=== PATIENT | female | born 1945 | race Caucasian/White ===

== ENCOUNTER 2022-01-08 02:17 | Emergency (ER) | payer MEDICARE, OTHER ==
[2022-01-08] MEDS ORDERED: PHENYLEPHRINE 0.5% NOSE 15ML NAS ONE (02:37)
[2022-01-08] MEDS ORDERED: TRANEXAMIC ACID 1,000 MG/10 ML VIAL IV ONE (02:43)
--- NOTE | 2022-01-08 03:47 | ER ---
Nurse's Notes [facility] Name: Marielos Soler Age: 76 yrs Sex: Female : 1945 Arrival Date: 01/08/2022 Time: 02:18 Bed 8 Private MD: Diagnosis: Epistaxis Presentation: 01/08 02:27 Chief complaint: Patient's son or daughter states: pt has history of chronic nose bb bleeds had a 3 hour nose bleed yesterday morning then it started again around 2300 last night pt has had recent cautery to nose and has packing in right nares pt had recent surgery and was off of blood thinners but started them back again on Saturday. Coronavirus screen: At this time, the client does not indicate any symptoms associated with coronavirus-19. Ebola Screen: No symptoms or risks identified at this time. Initial Sepsis Screen: Does the patient meet any 2 criteria? No. Patient's initial sepsis screen is negative. Does the patient have a suspected source of infection? No. Patient's initial sepsis screen is negative. Risk Assessment: Do you want to hurt yourself or someone else? Patient reports no desire to harm self or others. Onset of symptoms was January 07, 2022. 02:27 Method Of Arrival: Wheelchair bb 02:27 Acuity: CLARKE 3 bb Historical: - Allergies: 02:30 Benzonatate; bb - Home Meds: 02:30 Dicyclomine Oral [Active]; midodrine oral [Active]; spironolactone Oral [Active]; bb Furosemide Oral [Active]; pantoprazole oral [Active]; levothyroxine oral [Active]; Eliquis oral [Active]; Plavix Oral [Active]; Aspirin Oral [Active]; - PSHx: 02:30 pacemaker; Watchman; bb - Immunization history:: Adult Immunizations up to date. - Social history:: Smoking status: Patient denies any tobacco usage or history of. Screenin:03 Abuse screen: Denies threats or abuse. Denies injuries from another. Nutritional as6 screening: No deficits noted. Tuberculosis screening: No symptoms or risk factors identified. Fall Risk None identified. Assessment: 02:30 General: Appears in no apparent distress. Behavior is cooperative, anxious. Pain: as6 Denies pain. Neuro: Level of Consciousness is awake, alert. Respiratory: Respiratory effort is even, unlabored. EENT: Nares with bleeding noted on right. Vital Signs: 02:27 BP 123 / 48; Pulse 72; Resp 18 S; Pulse Ox 95% on R/A; Weight 50.8 kg (R); Height 5 ft. bb 4 in. (162.56 cm) (R); Pain 0/10; 03:17 BP 121 / 53; Pulse 70; Resp 20 S; Pulse Ox 96% on R/A; as6 02:27 Body Mass Index 19.22 (50.80 kg, 162.56 cm) bb ED Course: 02:18 Patient arrived in ED. bp1 02:20 Carlos Alberto Jon, TASHA is Primary Nurse. as6 02:21 Abhijeet Sanches DO is Attending Physician. ms3 02:30 Triage completed. bb 02:30 Arm band placed on Patient placed in an exam room, on a stretcher, on pulse oximetry. bb Family accompanied patient. 02:42 Assist provider with nosebleed control using Afrin sprays, nasal clamp, Bleeding from aa9 right nares. Set up for procedure. Performed by Abhijeet Sanches DO Bleeding decreased. Patient tolerated well. 03:03 Bed in low position. Call light in reach. Side rails up X 1. Adult w/ patient. as6 03:46 Monica Cervantes MD is Referral Physician. ms3 04:07 Patient did not have IV access during this emergency room visit. as6 Administered Medications: 03:20 Drug: Finn-Synephrine (phenylephrine) [place] 0.5 % 2 sprays {Note: administered by as6 provider .} Route: Intranasal; Site: right nare; 04:08 Follow up: Response: No adverse reaction as6 03:20 Drug: Tranexamic Acid 200 mg {Note: administered by provider .} Route: IV; Rate: as6 calculated rate; Site: Other; 04:08 Follow up: Response: No adverse reaction; IV Status: Completed infusion; IV Intake: [id number] Medication: 04:07 VIS not applicable for this client. as6 Intake: 04:08 IV: 10ml; Total: 10ml. as6 Outcome: 03:47 Discharge ordered by . ms3 04:07 Discharged to home via wheelchair, with family. as6 04:07 Condition: stable 04:07 Discharge instructions given to patient, family, Instructed on discharge instructions, follow up and referral plans. Demonstrated understanding of instructions, follow-up care. 04:08 Patient left the ED. as6 Signatures: Tori Jenkins, RN Abhijeet Ross DO DO ms3 WilfridobillyJovanna Ashby, RN RN as6 Candice Bee RN RN aa9 Corrections: (The following items were deleted from the chart) 02:43 02:42 Assist provider with nosebleed control using Afrin sprays, nasal clamp, Bleeding aa9 from right nares. Set up for procedure. Performed by Abhijeet Sanches DO Bleeding decreased. Patient tolerated well. aa9
--- NOTE | 2022-01-08 03:47 | EDPHYS ---
Physician Documentation [facility] Name: Marielos Soler Age: 76 yrs Sex: Female : 1945 Arrival Date: 01/08/2022 Time: 02:18 Bed 8 Private MD: ED Physician Abhijeet Sanches HPI: 01/08 02:43 This 76 yrs old Female presents to ER via Wheelchair with complaints of Nose Bleed. ms3 02:43 76-year-old female with past medical history of atrial fibrillation status post ms3 watchman procedure presents for right-sided nosebleed that began at 11:30 PM. Patient's granddaughter states patient had a nosebleed this morning and they applied Afrin and nosebleed stopped and the bleeding was controlled. Patient denies pain at this time. Patient denies fevers chills nausea vomiting or lightheadedness. Alleviating or inciting factors. Historical: - Allergies: 02:30 Benzonatate; bb - Home Meds: 02:30 Dicyclomine Oral [Active]; midodrine oral [Active]; spironolactone Oral [Active]; bb Furosemide Oral [Active]; pantoprazole oral [Active]; levothyroxine oral [Active]; Eliquis oral [Active]; Plavix Oral [Active]; Aspirin Oral [Active]; - PSHx: 02:30 pacemaker; Watchman; bb - Immunization history:: Adult Immunizations up to date. - Social history:: Smoking status: Patient denies any tobacco usage or history of. ROS: 02:43 Constitutional: Negative for fever, and chills. Eyes: Negative for injury, pain, ms3 redness, and discharge. 02:43 Cardiovascular: Negative for chest pain, and palpitations. Respiratory: Negative for shortness of breath, cough, wheezing, and pleuritic chest pain, Abdomen/GI: Negative for abdominal pain, nausea, vomiting, diarrhea, and constipation, MS/Extremity: Negative for injury and deformity, Neuro: Negative for headache, weakness, numbness, tingling. 02:43 ENT: Positive for nose bleed. Exam: 02:54 Constitutional: This is a well developed, well nourished patient who is awake, alert, ms3 and in no acute distress. Head/Face: Normocephalic, atraumatic. 02:54 Cardiovascular: Regular rate and rhythm with a normal S1 and S2. No gallops, murmurs, or rubs. Normal PMI, no JVD. No pulse deficits. Respiratory: Lungs have equal breath sounds bilaterally, clear to auscultation and percussion. No rales, rhonchi or wheezes noted. No increased work of breathing, no retractions or nasal flaring. Abdomen/GI: Soft, non-tender, with normal bowel sounds. No distension or tympany. No guarding or rebound. No evidence of tenderness throughout. Skin: Warm, dry with normal turgor. Normal color with no rashes, no lesions, and no evidence of cellulitis. Psych: Awake, alert, with orientation to person, place and time. Behavior, mood, and affect are within normal limits. 02:54 ENT: Nose: bleeding, is seen from the right nare, and is moderate. Vital Signs: 02:27 BP 123 / 48; Pulse 72; Resp 18 S; Pulse Ox 95% on R/A; Weight 50.8 kg (R); Height 5 ft. bb 4 in. (162.56 cm) (R); Pain 0/10; 03:17 BP 121 / 53; Pulse 70; Resp 20 S; Pulse Ox 96% on R/A; as6 02:27 Body Mass Index 19.22 (50.80 kg, 162.56 cm) bb Procedures: 03:15 Epistaxis treatment: A moderate amount of bleeding noted from right nare. Treated using ms3 anterior packing, rhino rocket, TXA, Finn-Synephrine . MDM: 02:43 Patient medically screened. ms3 02:54 Differential diagnosis: spontaneous epistaxis. ms3 03:49 Data reviewed: vital signs, nurses notes, and as a result, I will discharge patient. ms3 Data interpreted: Pulse oximetry: on room air is 96 %. Interpretation: normal. Counseling: I had a detailed discussion with the patient and/or guardian regarding: the historical points, exam findings, and any diagnostic results supporting the discharge/admit diagnosis, the need for outpatient follow up, to return to the emergency department if symptoms worsen or persist or if there are any questions or concerns that arise at home. Administered Medications: 03:20 Drug: Finn-Synephrine (phenylephrine) [place] 0.5 % 2 sprays {Note: administered by as6 provider .} Route: Intranasal; Site: right nare; 04:08 Follow up: Response: No adverse reaction as6 03:20 Drug: Tranexamic Acid 200 mg {Note: administered by provider .} Route: IV; Rate: as6 calculated rate; Site: Other; 04:08 Follow up: Response: No adverse reaction; IV Status: Completed infusion; IV Intake: [id number] Disposition Summary: 01/08/22 03:47 Discharge Ordered Location: Home ms3 Condition: Stable ms3 Diagnosis - Epistaxis ms3 Followup: ms3 - With: Monica Cervantes MD - When: 1 - 2 days - Reason: Recheck today's complaints Discharge Instructions: - Discharge Summary Sheet ms3 - Nosebleed, Adult ms3 Forms: - Medication Reconciliation Form ms3 - Thank You Letter ms3 - Antibiotic Education ms3 - Prescription Opioid Use ms3 Signatures: Tori Jenkins RN RN bb Sims, Marcus, DO DO ms3 Carlos Alberto Jon RN RN as6
[2022-01-08 04:29] VITALS: BP 121/53; O2SAT 96
== END 2022-01-08 04:08 | disposition home or self-care (01) ==
LOC: ER 02:17
DX: R04.0 Epistaxis (principal); I48.91 Unspecified atrial fibrillation; Z88.8 Allergy status to other drugs, medicaments and biological substances
CPT/HCPCS: 30901; 96365; 99283

== ENCOUNTER 2022-01-11 16:51 | Inpatient (IN) | payer MEDICARE ==
[2022-01-11 17:58] LABS: Absolute Lymphocytes (CBC) 1.2 K/uL (0.7-4.9); Lymphocytes % 21.4 % (15.3-44.8); MCV 77.8 fL (80-100); MPV 8.1 fL (7.6-11.3); RBC Red Blood Cell Count 2.68 M/uL (3.86-4.86)
[2022-01-11 18:00] LABS: Hematocrit 20.9 % (36.0-45.0)
[2022-01-11 18:04] LABS: Protime INR 3.71
[2022-01-11 18:18] LABS: Troponin High Sensitivity 36.4 pg/mL (<58.9)
--- NOTE | 2022-01-11 19:58 | EDPHYS ---
Physician Documentation [facility] Name: Marielos Soler Age: 76 yrs Sex: Female : 1945 Arrival Date: 01/11/2022 Time: 16:58 Bed 8 Private MD: ED Physician José Antonio Koo HPI: 01/11 19:00 This 76 yrs old Female presents to ER via Wheelchair with complaints of blood cp transfusion. 19:00 The patient presents with a nose bleed, causative factors include: current treatment cp with blood thinners. 19:00 Onset: The symptoms/episode began/occurred 01/07/2022. Associated signs and symptoms: cp Pertinent positives: general weakness, Pertinent negatives: chest pain, cough, fever, shortness of breath, syncope. 19:00 Severity of symptoms: in the emergency department the symptoms continued nose bleed. cp Patient seen by JOSLYN Paz at office of DR Dodd today for f/u for nose bleed. Had rhino rocket removed and packing placed. Patient reports blood work drawn today showed anemia. Referred to ED for blood transfusion. Historical: - Allergies: 17:14 Benzonatate; iw - Home Meds: 17:15 Eliquis 5 mg oral tab [Active]; furosemide 20 mg oral tab [Active]; Aspirin Oral iw [Active]; Dicyclomine Oral [Active]; Plavix Oral [Active]; pantoprazole Oral [Active]; Spironolactone Oral [Active]; midodrine Oral [Active]; levothyroxine oral [Active]; - PMHx: 17:15 Anemia; Atrial fibrillation; iw - PSHx: 17:14 pacemaker; watchman; iw - Immunization history:: Adult Immunizations. - Social history:: Smoking status: . ROS: 19:05 Constitutional: Negative for body aches, chills, fever, poor PO intake. cp 19:05 Eyes: Negative for injury, pain, redness, and discharge. cp 19:05 ENT: Positive for nose bleed, Negative for drainage from ear(s), ear pain, difficulty swallowing, difficulty handling secretions. 19:05 Cardiovascular: Positive for edema, Negative for chest pain, palpitations. 19:05 Respiratory: Negative for cough, shortness of breath, wheezing. 19:05 Abdomen/GI: Negative for abdominal pain, vomiting, diarrhea, constipation. 19:05 Back: Negative for pain at rest, pain with movement. 19:05 : Negative for urinary symptoms. 19:05 Neuro: Positive for weakness, Negative for altered mental status, headache, loss of consciousness, numbness, syncope. 19:05 All other systems are negative. Exam: 19:00 ECG was reviewed by the Attending Physician. cp 19:08 Constitutional: The patient appears in no acute distress, alert, awake, cp non-diaphoretic, non-toxic, well developed, well nourished, pale. 19:08 Head/Face: Normocephalic, atraumatic. cp 19:08 Eyes: Periorbital structures: appear normal, Pupils: equal, round, and reactive to light and accomodation, Extraocular movements: intact throughout, Conjunctiva: normal, no exudate, no injection, Sclera: no appreciated abnormality, Lids and lashes: appear normal, bilaterally. 19:08 ENT: External ear(s): are unremarkable, Nose: bleeding, is seen from the left nare, and is minimal, no septal hematoma is appreciated, clotted blood, in left nare, Mouth: Lips: moist, Oral mucosa: pink and intact, moist, Posterior pharynx: Airway: no evidence of obstruction, patent. 19:08 Neck: ROM/movement: is normal, is supple, without pain, no range of motions limitations, no nuchal rigidity. 19:08 Chest/axilla: Inspection: normal, Palpation: is normal, no crepitus, no tenderness. 19:08 Cardiovascular: Rate: normal, Rhythm: regular, Edema: ankle edema, that is mild, JVD: is not appreciated. 19:08 Respiratory: the patient does not display signs of respiratory distress, Respirations: normal, no use of accessory muscles, no retractions, labored breathing, is not present, Breath sounds: decreased breath sounds, that are mild, throughout, stridor, is not appreciated, wheezing: is not appreciated. 19:08 Abdomen/GI: Inspection: abdomen appears normal, Palpation: abdomen is soft and non-tender, in all quadrants. 19:08 Back: pain, is absent, ROM is normal, CVA tenderness, is absent. 19:08 Skin: cellulitis, is not appreciated, no rash present. 19:08 Neuro: Orientation: to person, place \T\ time. Mentation: able to follow commands, Motor: moves all fours, general weakness with no focal deficits, Sensation: is normal. Vital Signs: 17:12 BP 110 / 66; Pulse 73; Resp 16; Temp 98.6; Pulse Ox 96% on R/A; Weight 50.8 kg; Height iw 5 ft. 4 in. (162.56 cm); 18:56 BP 109 / 51; Pulse 70; Pulse Ox 100% on R/A; ap3 20:00 BP 104 / 54; Pulse 69; Resp 18; Pulse Ox 98% on R/A; Pain 0/10; kl 22:46 BP 93 / 54; Pulse 70; Resp 18; Temp 97.5(T); Pulse Ox 95% on R/A; Pain 0/10; kl 17:12 Body Mass Index 19.22 (50.80 kg, 162.56 cm) iw MDM: 18:13 Patient medically screened. [facility] 19:05 Data reviewed: vital signs, lab test result(s), EKG, I have discussed the patient's presentation/case with the attending Emergency Department Physician; and as a result, I will admit patient. 19:05 Test interpretation: by ED physician or midlevel provider: ECG. 19:57 Counseling: I had a detailed discussion with the patient and/or guardian regarding: the historical points, exam findings, and any diagnostic results supporting the discharge/admit diagnosis, lab results, the need for further work-up and treatment in the hospital. 19:57 Physician consultation: Sharri ZAMBRANO was contacted at 19:55, regarding admission, to the telemetry unit. patient's condition. ED course: Discussed results of labs and need for blood transfusion. Patient now agrees to be admitted for treatment and ENT consult for epistaxis. 01/11 17:18 Order name: Basic Metabolic Panel; Complete Time: 18:31 bm7 01/11 18:35 Interpretation: Normal except: NA 132; CL 96; GLUC 143; BUN 59; CRE 1.65; GFR 32. cp 01/11 17:18 Order name: CBC with Diff; Complete Time: 18:31 bm7 01/11 18:36 Interpretation: Normal except: WBC 5.5; RBC 2.68; HGB 6.7; HCT 20.9; MCV 77.8; MCH cp 25.0; RDW 21.2; MN% 15.1; BASO% 1.9. 01/11 17:18 Order name: PT-INR; Complete Time: 18:31 [facility] 01/11 17:18 Order name: Troponin HS; Complete Time: 18:31 [facility] 01/11 17:18 Order name: Type And Screen [facility] 01/11 19:49 Order name: Packed RBCs (Additional Unit) [facility] 01/11 17:18 Order name: EKG; Complete Time: 17:35 [facility] 01/11 17:18 Order name: Cardiac monitoring; Complete Time: 18:56 [facility] 01/11 17:18 Order name: EKG - Nurse/Tech; Complete Time: 18:56 [facility] 01/11 17:18 Order name: IV Saline Lock; Complete Time: 18:56 [facility] 01/11 17:18 Order name: Labs collected and sent; Complete Time: 18:56 [facility] 01/11 17:18 Order name: O2 Per Protocol; Complete Time: 18:56 [facility] 01/11 20:15 Order name: SARS RAPID [facility] 01/11 20:28 Order name: ABO/RH no charge [facility] 01/11 17:18 Order name: O2 Sat Monitoring; Complete Time: 18:56 [facility] 01/11 19:13 Order name: Labs - recollect needed: lavender needed [facility] 01/11 19:23 Order name: Transfuse cp EC:00 Rate is 70 beats/min. Rhythm is regular. VA interval is prolonged at 362 msec. QRS cp interval is prolonged at 182 msec. QT interval is normal. T waves are Inverted in leads aVL, aVR. Interpreted by me. Reviewed by me. Administered Medications: No medications were administered Disposition: 01/12 01:04 Co-signature as Attending Physician, José Antonio Koo MD. rn Disposition Summary: 01/11/22 19:57 Hospitalization Ordered Hospitalization Status: Observation cp Provider: Sharri Hawkins cp Location: Telemetry/MedSurg (observation) cp Condition: Stable cp Problem: an ongoing problem cp Symptoms: have improved cp Bed/Room Type: Standard cp Room Assignment: 210(01/11/22 21:59) mw Diagnosis - Epistaxis cp - Anemia, unspecified cp Forms: - Medication Reconciliation Form cp - SBAR form cp Signatures: Dispatcher [employer] Fiordaliza Rock RN Will Varela MD MD cha Williams, Irene, RN RN iw Nieto, Roman, MD MD rn Martinez, Eric em1 Will Mariee PA PA cp Wise, Tara, RN RN tw2 Jovanna Sumner RN RN bm7 Sharri Hawkins PA PA sb3 Corrections: (The following items were deleted from the chart) 01/11 21:59 19:57 brandie taylor
--- NOTE | 2022-01-11 19:58 | ER ---
Nurse's Notes [facility] Name: Marielos Soler Age: 76 yrs Sex: Female : 1945 Arrival Date: 01/11/2022 Time: 16:58 Bed 8 Private MD: Diagnosis: Epistaxis;Anemia, unspecified Presentation: 01/11 17:12 Chief complaint: Patient's son or daughter states: had her nose cauterized and had iw watchman procedure last week, had a rhino rocket placed and removed at ENT office, they did labs today at ENT office and was told her hemoglobin was , was 6;6. Coronavirus screen: At this time, the client does not indicate any symptoms associated with coronavirus-19. Ebola Screen: Patient negative for fever greater than or equal to 101.5 degrees Fahrenheit, and additional compatible Ebola Virus Disease symptoms Patient denies exposure to infectious person. Patient denies travel to an Ebola-affected area in the 21 days before illness onset. No symptoms or risks identified at this time. Initial Sepsis Screen: Does the patient meet any 2 criteria? No. Patient's initial sepsis screen is negative. Does the patient have a suspected source of infection? No. Patient's initial sepsis screen is negative. Risk Assessment: Do you want to hurt yourself or someone else? Patient reports no desire to harm self or others. Onset of symptoms was January 11, 2022. 17:12 Method Of Arrival: Wheelchair iw 17:12 Acuity: CLARKE 2 iw 22:31 Note blood transfusion initiated. kl Triage Assessment: 22:47 General: Appears in no apparent distress. slender, Behavior is calm, flat. Pain: Denies kl pain. Historical: - Allergies: 17:14 Benzonatate; iw - Home Meds: 17:15 Eliquis 5 mg oral tab [Active]; furosemide 20 mg oral tab [Active]; Aspirin Oral iw [Active]; Dicyclomine Oral [Active]; Plavix Oral [Active]; pantoprazole Oral [Active]; Spironolactone Oral [Active]; midodrine Oral [Active]; levothyroxine oral [Active]; - PMHx: 17:15 Anemia; Atrial fibrillation; iw - PSHx: 17:14 pacemaker; watchman; iw - Immunization history:: Adult Immunizations. - Social history:: Smoking status: . Screenin:52 Abuse screen: Denies threats or abuse. Nutritional screening: No deficits noted. tw2 Tuberculosis screening: No symptoms or risk factors identified. Fall Risk Secondary diagnosis (15 points) impaired mobility. Assessment: 18:52 Reassessment: provider at bedside at this time. tw2 Vital Signs: 17:12 BP 110 / 66; Pulse 73; Resp 16; Temp 98.6; Pulse Ox 96% on R/A; Weight 50.8 kg; Height iw 5 ft. 4 in. (162.56 cm); 18:56 BP 109 / 51; Pulse 70; Pulse Ox 100% on R/A; ap3 20:00 BP 104 / 54; Pulse 69; Resp 18; Pulse Ox 98% on R/A; Pain 0/10; kl 22:46 BP 93 / 54; Pulse 70; Resp 18; Temp 97.5(T); Pulse Ox 95% on R/A; Pain 0/10; kl 17:12 Body Mass Index 19.22 (50.80 kg, 162.56 cm) iw ED Course: 16:58 Patient arrived in ED. as 17:14 Triage completed. iw 17:16 Arm band placed on. iw 18:13 Will Mariee PA is PHCP. cp 18:13 Will Early MD is Attending Physician. cp 18:15 Placed in gown. Bed in low position. Adult w/ patient. sheet metal assembler on. Pulse ox on. tw2 NIBP on. Warm blanket given. 19:15 José Antonio Koo MD is Attending Physician. cp 19:57 Sharri Hawkins PA is Hospitalizing Provider. cp 22:47 No provider procedures requiring assistance completed. Patient admitted, IV remains in kl place. Administered Medications: No medications were administered Medication: 18:54 VIS not applicable for this client. tw2 Outcome: 19:57 Decision to Hospitalize by Provider. cp 22:47 Admitted to Med/surg accompanied by nurse, room 210, with chart, Report called to ignacio Callaway RN 22:47 Condition: stable 22:47 Instructed on the need for admit, Demonstrated understanding of instructions. 01/12 00:41 Patient left the ED. Signatures: Genoveva Choudhury RN RN kl Martinez, Amelia as Williams, Irene, RN RN Will Mariee PA PA cp Wise, Tara, RN RN tw2 [place] Valverde, RN RN ap3
--- NOTE | 2022-01-11 20:58 | P.HP ---
Certification for Inpatient Patient admitted to: Observation With expected LOS: <2 Midnights Patient will require the following post-hospital care: None Practitioner: I am a practitioner with admitting privileges, knowledge of patient current condition, hospital course, and medical plan of care. Services: Services provided to patient in accordance with Admission requirements found in Title 42 Section 412.3 of the Code of Federal Regulations Patient History Date of Service: 01/11/22 Reason for admission: Anemia/Epistaxis History of Present Illness: Patient is a 76-year-old female with A. fib on eliquis 1 week s/p watchman who presented to the ED with complaints of anemia. Per patient's family, patient has frequent nosebleeds and went to see ENT about 1 month ago where a vessel in her left nare was cauterized. Since then, she has had many issues with bleeding/pain in her nose. She then had her Walkman procedure 1 week ago and was started on eliquis which has exacerbated her nose bleeds. She went to ENT today where they checked her labs, found a hgb of 6.6, and immediately sent her to ED. Patient is pale and weak on presentation. Blood pressure is soft, but family states she chronically runs low. She has had blood and iron transfusions in the past. Labs today significant for Na 132, Cr 1.65, BUN 56, hgb 6.7, hct 20.9, mcv 77, PT 41, INR 3.71. 2 units PRBC ordered in ED. ENT was contacted and has agreed to see patient in the morning. She is admitted for further evaluation and treatment. Allergies benzonatate Allergy (Verified 01/11/22 21:39) Itching/Hives/Rash Home medications list reviewed: Yes - Past Medical/Surgical History Diabetic: No -: Afib -: Anemia -: CHF -: Watchman -: Pacemaker Psychosocial/ Personal History: Patient is visiting from [place]. - Family History Mother -: Cancer - Social History Smoking Status: Never smoker Alcohol use: No CD- Drugs: No Caffeine use: Yes Place of Residence: Home Review of Systems General: Weakness, As per HPI Physical Examination - Physical Exam General: Alert, In no apparent distress, Other (pale) Neck: Supple, 2+ carotid pulse no bruit, No LAD, Without JVD or thyroid abnormality Respiratory: Clear to auscultation bilaterally, Normal air movement Cardiovascular: No edema, Regular rate/rhythm, Normal S1 S2 Gastrointestinal: Normal bowel sounds, No tenderness Musculoskeletal: No tenderness Integumentary: Other (bruising noted to upper extremities bilaterally) Neurological: Normal speech, Normal strength at 5/5 x4 extr, Normal tone, Normal affect - Studies Laboratory Data (last 24 hrs) 01/11/22 17:40: PT 41.9 H, INR 3.71 01/11/22 17:40: WBC 5.5 D, Hgb 6.7 L*, Hct 20.9 L*, Plt Count 213 01/11/22 17:40: Sodium 132 L, Potassium 4.0, BUN 59 H, Creatinine 1.65 H, Glucose 143 H Assessment and Plan - Problems (Diagnosis) (1) Acute on chronic blood loss anemia Current Visit: Yes Status: Acute (2) Epistaxis, recurrent Current Visit: Yes Status: Acute (3) Afib Current Visit: Yes Status: Chronic Qualifiers: Atrial fibrillation type: unspecified chronic Qualified Code(s): I48.20 - Chronic atrial fibrillation, unspecified; I48.2 - Chronic atrial fibrillation (4) Chronic anticoagulation Current Visit: Yes Status: Chronic (5) CHF (congestive heart failure) Current Visit: Yes Status: Chronic Qualifiers: 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 Qualified Code(s): I50.814 - Right heart failure due to left heart failure (6) Chronic kidney disease Current Visit: Yes Status: Acute Qualifiers: Chronic kidney disease stage: stage 3 (moderate) Chronic kidney disease stage 3 subtype: stage 3a (GFR 45-59) Qualified Code(s): N18.31 - Chronic kidney disease, stage 3a - Plan -Transfuse 2 units PRBC and check post 2 hour CBC -Monitor on telemetry and for signs of fluid overload as patient has history of CHF -Iron studies ordered for the morning -ENT consulted -Physical therapy consult -Reconcile and continue home medications -Monitor and replete electrolytes per protocol -SCDs for VTE ppx -Full code Discharge Plan: Home Plan to discharge in: 24 Hours - Advance Directives Does patient have a Living Will: No Does patient have a Durable POA for Healthcare: No - Code Status/Comfort Care Code Status Assessed: Yes (Full) Critical Care: No Time Spent Managing Pts Care (In Minutes): 50
[2022-01-11 21:27] LABS: SARS-CoV-2 Antigen Rapid Res Negative (Negative)
[2022-01-11] MEDS ORDERED: NA CHLORIDE 0.9% 250 ML ONE (21:58)
[2022-01-11] MEDS ORDERED: DICYCLOMINE HCL 10 MG CAP PO PRN (22:04)
[2022-01-12 00:36] VITALS: BMI 19.2
[2022-01-12] MEDS ORDERED: ACETAMINOPHEN 500 MG TAB PO PRN (00:49)
[2022-01-12] MEDS ORDERED: ONDANSETRON 4 MG/2 ML VIAL IV PRN (00:49)
[2022-01-12] MEDS ORDERED: NA CHLORIDE 0.9% 250 ML ONE (01:57)
[2022-01-12 05:54] LABS: Specific Gravity 1.015 (1.005-1.030); Urine Bilirubin Negative (Negative); Urine Blood 1+ (Negative); Urine Color Yellow (Yellow); Urine Glucose Negative (Negative); Urine Protein Negative (Negative); Urine Urobilinogen 0.2 mg/dL (0.2-1.0); Urine pH 5.5 (5.0-7.0)
[2022-01-12 05:56] LABS: Urine Clarity Slightly Cloudy (Clear)
[2022-01-12 06:07] LABS: Urine Bacteria >50 /HPF (<20)
[2022-01-12 06:08] LABS: Urine WBC Clump Few /HPF (None Seen)
[2022-01-12 06:38] LABS: Absolute Lymphocytes (CBC) 0.7 K/uL (0.7-4.9); Hematocrit 22.6 % (36.0-45.0); Lymphocytes % 17.4 % (15.3-44.8); MCV 77.5 fL (80-100); MPV 8.1 fL (7.6-11.3); RBC Red Blood Cell Count 2.92 M/uL (3.86-4.86)
[2022-01-12 06:49] LABS: Albumin 2.6 g/dL (3.4-5.0); Bilirubin Total 2.2 mg/dL (0.2-1.0); Folic Acid, (Folate) 16.5 ng/mL (3.1-17.5); Magnesium 2.2 mg/dL (1.8-2.4); Phosphorus 3.4 mg/dL (2.5-4.9); Potassium 3.9 mmol/L (3.5-5.1); Protein, Total 5.9 g/dL (6.4-8.2)
[2022-01-12] MEDS: LEVOTHYROXINE SOD 0.05 MG TABLET PO SCH (06:53)
--- NOTE | 2022-01-12 07:51 | P.CNS ---
Date of Consult: 01/12/22 I was consulted urgently for active nasal bleeding. The patient was admitted overnight for severe anemia and blood transfusions. See associated office note which will be added to the paper chart. I arrived to the bedside at approximately 7:45 AM. The patient was spitting out blood from her mouth and had a nasal clamp in place. After removing the nasal clamp, the patient had active bleeding from the right nostril and a 8 cm balloon was placed and inflated with approximately 8 mL of saline. The patient then had bleeding coming from the left side and a 8 cm balloon was placed in the left nostril but the patient would not tolerate advancement more than approximately 4 cm. The balloon was inflated and the patient continued to have some bleeding through the mouth. Due to lack of additional equipment, I recommended stat administration of tranexamic acid to help with clot stabilization.
[2022-01-12] MEDS ORDERED: TRANEXAMIC ACID 1,000 MG in NA CHLORIDE 0.9% 50 ML IV ONE ×4 (08:00)
--- NOTE | 2022-01-12 09:22 | P.PN ---
Subjective Date of Service: 01/12/22 Chief Complaint: Anemia/Epistaxis Patient is 76 years of age admitted with severe epistaxis and is on A. fib has had a watchman procedure significant bleeding seen by ENT Was on Eliquis Review of Systems ENT: Other (Nasal bleeding) Physical Examination - Vital Signs Temperature: 97.5 F Blood Pressure: 93/54 Pulse: 70 Respirations: 18 Pulse Ox (%): 99 - Physical Exam General: Alert Respiratory: Clear to auscultation bilaterally Cardiovascular: No edema, Normal S1 S2 - Studies Laboratory Data (last 24 hrs) 01/11/22 17:40: PT 41.9 H, INR 3.71 01/11/22 17:40: WBC 5.5 D, Hgb 6.7 L*, Hct 20.9 L*, Plt Count 213 01/11/22 17:40: Sodium 132 L, Potassium 4.0, BUN 59 H, Creatinine 1.65 H, Glucose 143 H Assessment And Plan - Current Problems (Diagnosis) (1) Epistaxis, recurrent Current Visit: Yes Status: Acute Plan: Patient is 76 years of age on Eliquis status post watchman procedure admitted with severe epistaxis on Tranexmic acid patient got transfused 2 units of packed red blood cells continue to monitor is also on Plavix and Eliquis at home/kycentra/Plavix discussed with pharmacy continue to monitor hemoglobin ENT is aware and is following the patient had a complicated history with nosebleeds
[2022-01-12] MEDS: MIDODRINE HCL 5 MG TABLET PO SCH ×3 (10:54→17:14)
[2022-01-12] MEDS: PANTOPRAZOLE 40MG TABLET PO SCH ×2 (10:56→21:46)
[2022-01-12] MEDS ORDERED: PROTHROMBIN COMPLEX CONCENTRATE (HUMAN) 500 UNIT VIAL IV ONE (11:00)
[2022-01-12 14:03] LABS: Hematocrit 24.8 % (36.0-45.0); Lymphocytes % 17.3 % (15.3-44.8); MCV 78.9 fL (80-100); MPV 7.8 fL (7.6-11.3); RBC Red Blood Cell Count 3.14 M/uL (3.86-4.86)
--- NOTE | 2022-01-12 15:20 | EKG ---
Test Date: 2022-01-11 Test Time: 18:54:44 Desk Representative: RAOUL MEASUREMENT RESULTS: Intervals: Rate: 70 [place]: 362 QRSD: 182 QT: 490 QTc: 529 [place]: P: 58 [place]: 362 QRS: 115 T: 100 INTERPRETIVE STATEMENTS: Sinus rhythm with 1st degree AV block Nonspecific intraventricular block Abnormal ECG No previous ECG available for comparison Electronically Signed On 01-12-22 15:19:00 CDT by Guanakito Cespedes
[2022-01-12] MEDS: HYDROCODONE/APAP 5/325 MG TAB PO PRN (17:14)
--- NOTE | 2022-01-12 20:14 | CON ---
Date of Consultation: 01/12/2022 Reason For Consultation: Atrial fibrillation, status post recent left atrial appendage closure. History Of Present Illness: A 76-year-old female, history of atrial fibrillation, anemia, CHF, recen t left atrial appendage using Watchman was done, presented with severe nosebleed that is not stopping . She was seen by ENT, had nasal packing, continued to bleed for short period of time and now bleedi ng has stopped. Is having pain from the packing, but otherwise no symptoms. Past Medical History: As outlined above in the HPI. Medications: Refer to reconciliation sheet for detailed list. Allergies: SHE IS ALLERGIC TO BENZONATATE. Family History: No premature coronary artery disease or cancer. Social History: Does not smoke or drink. Does not use any drugs. Review of Systems: All systems reviewed and they are negative except as mentioned in the HPI. Physical Examination: Vital Signs: Reviewed. Head and Neck: Pupils are equal, reactive to light. Intact eye movements. No JVD. No cervical lym phadenopathy. Neck supple. Thyroid is not enlarged. Lungs: Clear to auscultation bilaterally. No rhonchi, rales, or crackles. No accessory muscle use. Heart: Irregularly irregular. No extra sounds. Abdomen: Soft, nontender. Bowel sounds positive. No organomegaly, masses or hernia. No rigidity o r rebound. Extremities: No edema, clubbing, or cyanosis. Intact pulses. Skin: No rash. Neurologic: Alert, awake, and oriented x3. No acute focal deficits appreciated. Investigations: Creatinine is 1.4, hemoglobin is 8. Assessment And Recommendations: 1.Atrial fibrillation status post recent left atrial appendage closure with Watchman. She is having acute nasal bleed, required transfusion. To hold Eliquis for now and monitor hemodynamics, transfus e further if needed. 2.Nasal bleed, severe, status post packing by ENT and bleeding is under control. We will continue t o monitor. SR/MODL Voice ID: [id number] Report ID: [id number]
[2022-01-13 06:15] LABS: Hematocrit 25.5 % (36.0-45.0); MPV 8.2 fL (7.6-11.3); RBC Red Blood Cell Count 3.23 M/uL (3.86-4.86)
[2022-01-13] MEDS: LEVOTHYROXINE SOD 0.05 MG TABLET PO SCH (06:38)
[2022-01-13] MEDS: PANTOPRAZOLE 40MG TABLET PO SCH ×2 (08:48→21:24)
[2022-01-13] MEDS: MIDODRINE HCL 5 MG TABLET PO SCH ×3 (08:48→17:05)
[2022-01-13] MEDS ORDERED: POTASSIUM CL SA 10 MEQ TAB PO ONE (09:00)
[2022-01-13] MEDS: HYDROCODONE/APAP 5/325 MG TAB PO PRN (12:21)
--- NOTE | 2022-01-13 21:06 | PN ---
Date of Progress Note: 01/13/2022 Subjective: Seen by bedside. Bleeding appears to be under control. The patient appears to be more comfortable. Review of Systems: No chest pain, shortness of breath, orthopnea, cough, nausea, vomiting, or diarrhea. All other syste ms reviewed and are negative. Physical Examination: Vital Signs: Reviewed. Head and Neck: Pupils are equal and reactive to light. Intact eye movements. No JVD. No cervical lymphadenopathy. Neck is supple. Thyroid is not enlarged. Lungs: Clear to auscultation bilaterally. No rhonchi, rales, or crackles. No accessory muscle is u sed. Heart: Irregularly irregular. No extra sounds. Abdomen: Soft, nontender. Bowel sounds positive. No organomegaly. No masses or hernia. No rigidi ty or rebound. Extremities: No clubbing or cyanosis. Intact pulses. Skin: No rash was noted. Neurologic: Alert, awake, and oriented x3. No acute focal deficits appreciated. Investigations: Labs were reviewed. Assessment And Recommendations: 1.Atrial fibrillation, status post recent left atrial appendage closure. The patient is presenting with very aggressive nasal bleed that required transfusion. Hold all anticoagulants and once the pat ient is stable and the nasal packing is removed, can challenge her with a baby aspirin only. Probabl y, she will not tolerate anticoagulants at this point. 2.Anemia due to acute blood loss and this was restored and has been stable as the bleeding has stopp ed. 3.Nasal bleed. Nasal packing in place and appears to be stable. Continue to monitor and keep the p atient off the Eliquis. SR/MODL Voice ID: [id number] Report ID: [id number]
[2022-01-14] MEDS: LEVOTHYROXINE SOD 0.05 MG TABLET PO SCH (06:28)
[2022-01-14 07:01] LABS: Protime INR 1.61
[2022-01-14 07:35] LABS: Albumin 2.7 g/dL (3.4-5.0); Folic Acid, (Folate) 13.5 ng/mL (3.1-17.5); Magnesium 2.2 mg/dL (1.8-2.4); Potassium 4.8 mmol/L (3.5-5.1); Protein, Total 6.5 g/dL (6.4-8.2)
[2022-01-14 08:51] LABS: Hematocrit 23.7 % (36.0-45.0); Lymphocytes % 9.6 % (15.3-44.8); MCV 79.1 fL (80-100); MPV 8.3 fL (7.6-11.3); RBC Red Blood Cell Count 2.99 M/uL (3.86-4.86)
[2022-01-14] MEDS: MIDODRINE HCL 5 MG TABLET PO SCH ×3 (09:26→16:49)
[2022-01-14] MEDS: PANTOPRAZOLE 40MG TABLET PO SCH ×2 (09:26→20:45)
[2022-01-14] MEDS: SOD FERRIC GLUC COMPLX/SUCROSE 125 MG in NA CHLORIDE 0.9% 100 ML IV SCH (15:16)
[2022-01-14] MEDS ORDERED: CEFTRIAXONE 1,000 MG in NA CHLORIDE 0.9% 50 ML IVPB ONE (16:00)
[2022-01-14 16:15] LABS: Hematocrit 26.5 % (36.0-45.0)
[2022-01-14] MEDS: Meropenem 1,000 MG in NA CHLORIDE 0.9% 100 ML IV SCH (16:19)
[2022-01-14] MEDS: NA CHLORIDE 0.9% 1,000 ML IV SCH (16:23)
[2022-01-14 16:35] LABS: Albumin 2.8 g/dL (3.4-5.0); Bilirubin Direct 1.3 mg/dL (0-0.2); Bilirubin Total 3.3 mg/dL (0.2-1.0); Protein, Total 6.8 g/dL (6.4-8.2)
--- NOTE | 2022-01-14 17:00 | PN ---
Date of Progress Note: 01/14/2022 Subjective: Seen by bedside. No further massive bleeding. Still has the nasal packing and hemoglob in has been stable. Review of Systems: No chest pain, shortness of breath, orthopnea, cough. No nausea, vomiting, diarrhea. All other syst ems reviewed and are negative. Physical Examination: Vital Signs: Reviewed. Head and Neck: Pupils are equal, reactive to light. Intact eye movements. No JVD. No cervical lym phadenopathy. Neck is supple. Thyroid is not enlarged. Lungs: Clear to auscultation bilaterally. No rhonchi, wheezing, or crackles. No accessory muscle u se. Heart: Regular rate and rhythm. No extra sounds. Abdomen: Soft, nontender. Bowel sounds positive. No organomegaly. No masses or hernia. No rigidi ty or rebound. Extremities: No edema, clubbing, or cyanosis. Intact pulses. Skin: No rash. Neurologic: Alert, awake, oriented x3. No acute focal deficits appreciated. Investigations: Hemoglobin is 8.6 today and creatinine 1.27. Assessment And Recommendations: 1.Atrial fibrillation, rate is controlled, status post left atrial appendage closure recently with m assive nasal bleed that required transfusion. Continue to monitor off the Eliquis and once the bleed ing is completely under control to resume only baby aspirin 81 mg daily. 2.Nosebleed, massive, requiring blood transfusion. Nasal packing is in place and followed by ENT and hemoglobin has been stable. 3.Anemia due to acute blood loss and this has stabilized. SR/MODL Voice ID: [id number] Report ID: [id number]
[2022-01-14] MEDS ORDERED: Meropenem 500 MG in NA CHLORIDE 0.9% 100 ML IV SCH (18:00)
[2022-01-15] MEDS: Meropenem 1,000 MG in NA CHLORIDE 0.9% 100 ML IV SCH ×2 (02:29→17:36)
[2022-01-15] MEDS: LEVOTHYROXINE SOD 0.05 MG TABLET PO SCH (05:43)
[2022-01-15 06:42] LABS: Hematocrit 21.9 % (36.0-45.0); MPV 8.1 fL (7.6-11.3)
--- NOTE | 2022-01-15 07:30 | P.PN ---
Subjective Date of Service: 01/13/22 Chart reviewed. Spoke to family. Patient had Watchman procedure performed in [place], [place] about a month ago. She has been on Eliquis. She started bleeding when she came to [place] to visit her family. She was started on Eliquis. She has also been on aspirin and Plavix. The physical meteorologist wanted the patient on it for about 6 weeks. She went to see ENT if few days ago because of completing again had a cauterization and packing. She has continued to have bleeding afterwards he came to the ER and had rhino rockets placed by ENT. Plan is to remove them on Saturday. Hemoglobin has been monitored. She continues a pack red blood cells. Family is also concerned that she is a little lethargic. Will give her some gentle IV hydration and monitor volume status closely. Review of Systems 10-point ROS is otherwise unremarkable Physical Examination - Vital Signs Temperature: 96.3 F Blood Pressure: 108/52 Pulse: 69 Respirations: 17 Pulse Ox (%): 98 - Physical Exam General: Alert, In no apparent distress, Oriented x3 HEENT: Atraumatic, PERRLA, EOMI Neck: Supple, JVD not distended Respiratory: Clear to auscultation bilaterally, Normal air movement Cardiovascular: Regular rate/rhythm, Normal S1 S2 Gastrointestinal: Normal bowel sounds, No tenderness Musculoskeletal: No tenderness Integumentary: No rashes Neurological: Normal speech, Normal tone, Normal affect Lymphatics: No axilla or inguinal lymphadenopathy - Studies Microbiology Data (last 24 hrs): 01/12/22 05:51 Clean Catch Urine Chana Count - Final >100,000 CFU/ML. 01/12/22 05:51 Clean Catch Urine - Final Enterobacter Cloacae Medications List Reviewed: Yes Assessment & Plan - Problems (Diagnosis) (1) Acute on chronic blood loss anemia Current Visit: Yes Status: Acute (2) Chronic kidney disease Current Visit: Yes Status: Acute Qualifiers: Chronic kidney disease stage: stage 3 (moderate) Chronic kidney disease stage 3 subtype: stage 3a (GFR 45-59) Qualified Code(s): N18.31 - Chronic kidney disease, stage 3a (3) Epistaxis, recurrent Current Visit: Yes Status: Acute (4) Afib Current Visit: Yes Status: Chronic Qualifiers: Atrial fibrillation type: unspecified chronic Qualified Code(s): I48.20 - Chronic atrial fibrillation, unspecified; I48.2 - Chronic atrial fibrillation (5) CHF (congestive heart failure) Current Visit: Yes Status: Chronic Qualifiers: 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 Continue with monitoring H and H 2. Get physical therapy evaluation 3. may need to start IV antibiotics per UA results 4. hold anti-platelet therapy and anticoagulation per cardiology. Only continue anti-platelet therapy at discharge 5. Repeat INR and recheck liver function testing 6. continue medication for rate control 7. She does take diuretics at home but these have been on hold because she has been dehydrated 8. Gi and DVT prophylaxis with SCDs - Advance Directives Does patient have a Living Will: No Does patient have a Durable POA for Healthcare: No
--- NOTE | 2022-01-15 07:33 | P.PN ---
Date of Service: 01/14/22 Subjective urine culture was positive for Enterobacter which is an ESBL organism. Started meropenem. Hemoglobin has also been low so we will repeat this. Iron indices indicate iron deficiency and will replace arm. Patient have rhino rocket removed in the morning. 01/13 Chart reviewed. Spoke to family. Patient had Watchman procedure performed in [place], [place] about a month ago. She has been on Eliquis. She started bleeding when she came to [place] to visit her family. She was started on Eliquis. She has also been on aspirin and Plavix. The pipe threader wanted the patient on it for about 6 weeks. She went to see ENT if few days ago because of completing again had a cauterization and packing. She has continued to have bleeding afterwards he came to the ER and had rhino rockets placed by ENT. Plan is to remove them on Saturday. Hemoglobin has been monitored. She continues a pack red blood cells. Family is also concerned that she is a little lethargic. Will give her some gentle IV hydration and monitor volume status closely. Review of Systems 10-point ROS is otherwise unremarkable Physical Examination - Vital Signs reviewed - Physical Exam General: Alert, In no apparent distress, Oriented x3 HEENT: Atraumatic, PERRLA, EOMI; rhino rocket in place bilaterally Respiratory: Clear to auscultation bilaterally, Normal air movement Cardiovascular: Regular rate/rhythm, Normal S1 S2 Gastrointestinal: Normal bowel sounds, No tenderness Neurological: Normal speech, Normal tone, Normal affect Assessment & Plan - Problems (Diagnosis) (1) Acute on chronic blood loss anemia Current Visit: Yes Status: Acute (2) Chronic kidney disease Current Visit: Yes Status: Acute Qualifiers: Chronic kidney disease stage: stage 3 (moderate) Chronic kidney disease stage 3 subtype: stage 3a (GFR 45-59) Qualified Code(s): N18.31 - Chronic kidney disease, stage 3a (3) Epistaxis, recurrent Current Visit: Yes Status: Acute (4) Afib; Chronic anticoagulation Current Visit: Yes Status: Chronic Qualifiers: Atrial fibrillation type: unspecified chronic Qualified Code(s): I48.20 - Chronic atrial fibrillation, unspecified; I48.2 - Chronic atrial fibrillation (5) CHF (congestive heart failure) Current Visit: Yes Status: Chronic Qualifiers: 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 Continue with monitoring H and H; Repeat later today and if less than 7.5 will transfuse 1 unit of packed red blood cells 2. patient did well with physical therapy; continue working with them at this time 3. Start meropenem 4. hold anti-platelet therapy and anticoagulation per cardiology. Only continue anti-platelet therapy at discharge 5. Monitor INR and recheck liver function testing; no evidence of hemolysis 6. continue medication for rate control 7. She does take diuretics at home but these have been on hold because she has been dehydrated 8. Gi and DVT prophylaxis with SCDs - Advance Directives Does patient have a Living Will: No Does patient have a Durable POA for Healthcare: No
[2022-01-15] MEDS: PANTOPRAZOLE 40MG TABLET PO SCH ×2 (08:38→20:53)
[2022-01-15] MEDS: MIDODRINE HCL 5 MG TABLET PO SCH ×3 (08:38→16:27)
[2022-01-15] MEDS ORDERED: NA CHLORIDE 0.9% 250 ML IV SCH (09:00)
[2022-01-15] MEDS ORDERED: CEFTRIAXONE 1,000 MG in NA CHLORIDE 0.9% 50 ML IVPB SCH (09:00)
[2022-01-15] MEDS: NA CHLORIDE 0.9% 1,000 ML IV SCH ×2 (11:00→20:59)
[2022-01-15] MEDS ORDERED: VANCOMYCIN 1 GM in NA CHLORIDE 0.9% 250 ML IVPB ONE ×2 (16:00→17:20)
[2022-01-15] MEDS: SOD FERRIC GLUC COMPLX/SUCROSE 125 MG in NA CHLORIDE 0.9% 100 ML IV SCH (16:21)
[2022-01-15 16:27] LABS: Absolute Lymphocytes (CBC) 0.9 K/uL (0.7-4.9); Hematocrit 26.3 % (36.0-45.0); Lymphocytes % 10.7 % (15.3-44.8); MPV 8.1 fL (7.6-11.3); RBC Red Blood Cell Count 3.29 M/uL (3.86-4.86)
--- NOTE | 2022-01-15 17:35 | P.PN ---
Subjective Date of Service: 01/15/22 Chief Complaint: Anemia/Epistaxis Subjective: No new changes No acute events overnight. She continues to have some bleeding in her bilateral nares. Dr. Dodd had attempted to remove the RhinoRocket, but was unable to do so due to significant bleeding. Review of Systems 10-point ROS is otherwise unremarkable ENT: Other (epistaxis) Physical Examination - Vital Signs Temperature: 97.7 F Blood Pressure: 113/59 Pulse: 69 Respirations: 16 Pulse Ox (%): 97 - Physical Exam General: Alert, In no apparent distress, Oriented x3 HEENT: Atraumatic, Mucous membr. moist/pink, Other (right nare Rhino Rocket in place), EOMI, Sclerae nonicteric Neck: Supple, JVD not distended Respiratory: Clear to auscultation bilaterally, Normal air movement Cardiovascular: No edema, Regular rate/rhythm, Normal S1 S2, No gallops, No rubs, No murmurs Gastrointestinal: Normal bowel sounds, Soft and benign, Non-distended, No tenderness, No rebound, No guarding Musculoskeletal: No clubbing Integumentary: No rashes Neurological: Normal speech, Normal affect - Studies Medications List Reviewed: Yes Assessment And Plan - Plan # Acute on Chronic Blood Loss Anemia secondary to Epistaxis - ENT consulted and spoke with Dr. Dodd - recommends transfer to [facility] for higher level of care - Recommends holding off on anticoagulation for now given profuse bleeding - She has completed doc-to-doc with Dr. Saleh (ENT), who has accepted - I have completed doc-to-doc with Dr. Aguilar ([facility] hospitalist), who has also accepted - Currently waiting for PCU bed at [facility] - q6hr H&H and transfuse for Hgb < 7.0 - NPO after midnight in case ENT-cauterization is required tomorrow # Atrial Fibrillation s/p PPM and recent Watchman placement - Cardiology consulted and spoke with Dr. 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 Robinson Pinedo M.D. Discharge Plan: Transfer Plan to discharge in: 24 Hours
--- NOTE | 2022-01-15 17:38 | PN ---
Date of Progress Note: 01/15/2022 Subjective: Seen by bedside. The patient's nasal packing was removed and started bleeding again and packing was redone by ENT. No other complaints. Review of Systems: No chest pain, shortness of breath, orthopnea, or cough. No nausea, vomiting, diarrhea. All other s ystems reviewed and are negative. Physical Examination: Vital Signs: Her blood pressure is 108/52, temperature is 97.1, pulse 63, breathing at 17. General: Pleasant, elderly female, no apparent distress. Head and Neck: Pupils are equal, reactive to light. Intact eye movements. No JVD. No cervical lym phadenopathy. Neck is supple. Thyroid is not enlarged. Nasal packing in place. Lungs: Clear to auscultation bilaterally. No rhonchi, wheezing, or crackles. No accessory muscle u se. Heart: Irregularly irregular. No extra sounds. Abdomen: Soft, nontender. Bowel sounds positive. No organomegaly. No masses or hernia. No rigidi ty or rebound. Extremities: No clubbing or cyanosis. Intact pulses. Skin: No rash. Neurologic: Alert, awake, oriented x3. No acute focal deficits appreciated. Investigations: Creatinine is 1.27. Hemoglobin is 7.2. Assessment And Recommendations: 1.Atrial fibrillation, status post left atrial appendage closure, unfortunate event of severe nasal bleed. Keep Eliquis on hold for now. Her heart rate is controlled. 2.Anemia due to nosebleed. Getting blood transfusion now. 3.Nosebleed. Discussed with ENT. If bleeding does not stop after recent efforts, might consider tr ansferring to higher level care center for possible IR intervention and embolization of a bleeding vessel. I will discuss this further also with the primary care physician. SR/MODL Voice ID: [id number] Report ID: [id number]
--- NOTE | 2022-01-15 17:59 | CON ---
History Of Present Illness: This is a 76-year-old female. I was consulted for Enterobacter urinary tract infection secondary to multidrug-resistant organism. The patient denies any chest pain, abdomi nal pain. Complains of some back discomfort, which she has for several weeks. Has history of arthri tis. The patient denies any headache, nausea, vomiting, chest pain, abdominal pain. Coming in on 2021 when she was found to have severe anemia of 6.6. The patient was on Eliquis, which has b een stopped 3 days ago for atrial fibrillation. Past Medical History: Atrial fibrillation, anemia, congestive heart failure, pacemaker. Social History: Nonsmoker, nondrinker. Family History: Noncontributory. Medications: Meropenem. See MAR for other medications. Allergies: BENZONATATE. Review of Systems: A 10-point review was performed. Physical Examination: General: This is a 76-year-old female, lying in bed, not in any acute cardiopulmonary distress. Get ting blood transfusion and has a nasal packing. ENT and nurses are also in the room. Vital Signs: Temperature 97.1, pulse 73, respirations 12, blood pressure 95/47. HEENT: Unremarkable except nasal packing. Neck: Supple. Lungs: Basal crackles. Heart: S1, S2. Regular. Abdomen: Soft, nontender. Bowel sounds present. Extremity: Trace edema. Laboratory Data: Shows WBC 7.8, hemoglobin 7.2, platelets are 159. Chemistry shows sodium 128, pota ssium 4.8, chloride 96, bicarb 28, BUN 36, creatinine 1.2, glucose is 133, bilirubin is 3.3, alkaline phos is 235. Albumin level is 2.8. Micro data shows urine with more than 100,000 Enterobacter cloa , showing multidrug-resistant pattern, sensitive to meropenem, tobramycin, gentamicin. Assessment And Plan: 1.A 76-year-old female with significant history of atrial fibrillation and being treated with Eliqui s, coming in with nasal bleed. Incidental finding showed question of urinary tract infection with En terobacter cloacae which is multidrug-resistant. We will recommend meropenem for 5 days, repeat UA i f necessary, monitor the patient for signs of infection with fever and WBC trend. 2.Moderate protein-calorie malnourishment. 3.Anemia of chronic disease. 4.Epistaxis secondary to blood thinners. We will follow the patient closely. Thank you, Dr. Pinedo for consult. SABI/SHAHEEN Voice ID: [id number] Report ID: [id number]
[2022-01-16] MEDS ORDERED: FENTANYL CITR 100 MCG/2 ML IV ONE (03:06)
[2022-01-16] MEDS ORDERED: Meropenem 1000 MG/VIAL IV ONE (03:47)
[2022-01-16] MEDS: Meropenem 1,000 MG in NA CHLORIDE 0.9% 100 ML IV SCH ×2 (03:48→16:29)
[2022-01-16 03:51] LABS: Absolute Lymphocytes (CBC) 0.6 K/uL (0.7-4.9); Hematocrit 24.1 % (36.0-45.0); Lymphocytes % 9.8 % (15.3-44.8); MCV 78.6 fL (80-100); MPV 7.7 fL (7.6-11.3); RBC Red Blood Cell Count 3.07 M/uL (3.86-4.86)
[2022-01-16] MEDS ORDERED: NA CHLORIDE 0.9% 100 ML ONE (03:54)
[2022-01-16 04:05] LABS: Potassium 3.9 mmol/L (3.5-5.1)
[2022-01-16] MEDS: LEVOTHYROXINE SOD 0.05 MG TABLET PO SCH (05:42)
[2022-01-16] MEDS: NA CHLORIDE 0.9% 1,000 ML IV SCH ×2 (07:00→16:30)
--- NOTE | 2022-01-16 08:34 | P.PN ---
Date of Service: 01/15/22 I attended to the patient around 12:15 on 01/15/2022 with intent to remove rhinorocket. The patient was eating lunch. The nurses reported no active bleeding over the weekend. In consultation with the cardiology team, there is some urgency and desire to resume anticoagulants due to cardiac conditions. The patient was in no acute distress. The left rhinorocket which had been partially inseted was no longer present. The left nare was packed with gauze with some dried blood on the inferior aspect. The guaze was softened/moistened with saline and gently removed. This resulted in moderate active oozing of blood from the left nare. Visualization was limited by blood and secretions and there was no available suction set up at bedside. A 2 x 4cm piece of gelform was folded and placed within the left nasal cavity and direct pressure held for about 5 minutes resulting in control of the bleeding. Due to these findings, I elected not to remove the right rhinorocket with concerns that bleeding would resume and re-packing would be required and uncomfortable for the patient. I conferred with the hospitalist in regards to options and possible need for IR embolization. I conferred with ENT team at [facility] in regards for possible transfer. In the evening I was contacted by the House Super in regards to family of the pa tient seeking information about plan of care. We discussed the plan and rationale for transfer for higher level of care. The patient's daughter shared her frustration regarding the patient's ongoing epistaxis over about 6-8 weeks with ENT operative cauterization at the time of the Watchman placement and multiple placements of Rhinorockets without stable control of her bleeding. The family expressed understanding and are anxious to proceed with definitive treatment of the epistaxis. In total, I spent approximately 45 minutes in direct care, care coordination and consultation with the family.
[2022-01-16] MEDS: PANTOPRAZOLE 40MG TABLET PO SCH ×2 (08:35→20:34)
[2022-01-16] MEDS: MIDODRINE HCL 5 MG TABLET PO SCH ×3 (08:35→18:33)
[2022-01-16] MEDS: SOD FERRIC GLUC COMPLX/SUCROSE 125 MG in NA CHLORIDE 0.9% 100 ML IV SCH (08:36)
--- NOTE | 2022-01-16 08:47 | EKG ---
Test Date: 2022-01-16 Test Time: 02:52:43 Skate Boarder: HB MEASUREMENT RESULTS: Intervals: Rate: 70 [place]: QRSD: 176 QT: 474 QTc: 511 [place]: P: OH: QRS: 131 T: 73 INTERPRETIVE STATEMENTS: Electronic ventricular pacemaker Compared to ECG 01/11/2022 18:54:44 Sinus rhythm no longer present First degree AV block no longer present Electronically Signed On 01-16-22 08:46:26 CDT by Braxton Ta
[2022-01-16] MEDS ORDERED: VANCOMYCIN 750 MG in NA CHLORIDE 0.9% 150 ML IVPB SCH (16:00)
--- NOTE | 2022-01-16 16:15 | PN ---
Date of Progress Note: 01/16/2022 Subjective: Seen by bedside and clinically better. Still has the PEG. The nasal packing in place. No active bleeding while that is in place. Review of Systems: No chest pain, shortness of breath, orthopnea, or cough. Bleeding is temporarily stopped. No dysuri a, polyuria, or urinary urgency. All other systems reviewed and were negative. Physical Examination: Vital Signs: Reviewed. Head and Neck: Pupils are equal, reactive to light. Intact eye movements. No JVD. No cervical lym phadenopathy. Neck is supple. Thyroid is not enlarged. Lungs: Clear to auscultation bilaterally. No rhonchi, wheezing, or crackles. No accessory muscle u se. Heart: Irregularly irregular. No extra sounds. Abdomen: Soft, nontender. Bowel sounds positive. No organomegaly. No masses or hernia. No rigidi ty or rebound. Extremities: No clubbing or cyanosis. Intact pulses. Skin: No rash. Neurologic: Alert, awake, oriented x3. No acute focal deficits appreciated. Lymph Nodes: No cervical or axillary lymphadenopathy. Investigations: Creatinine 0.94 and hemoglobin 8.1. Assessment And Recommendations: 1.Atrial fibrillation, clinically stable. Rate is controlled. Off the Eliquis. Status post Watchm an placement for left atrial appendage closure. Recommend once the condition stabilized to resume on ly baby aspirin 81 mg. 2.Nasal bleed, still requires the nasal packing. I will recommend transfer to higher level care facility for IR intervention and embolization of bleeding vessel. /JOVITAL Voice ID: [id number] Report ID: [id number]
--- NOTE | 2022-01-16 19:26 | P.PN ---
Subjective Date of Service: 01/16/22 Chief Complaint: Anemia/Epistaxis No acute events overnight. Bleeding seems to be slowing down. Right Rhino Rocket still in place this morning during rounds. She is eager for transfer to [facility]. Review of Systems 10-point ROS is otherwise unremarkable ENT: Other (epistaxis, slightly improved) Physical Examination - Vital Signs Temperature: 97.4 F Blood Pressure: 121/62 Pulse: 73 Respirations: 18 Pulse Ox (%): 96 - Studies Medications List Reviewed: Yes Assessment And Plan - Plan Physical Exam General: Alert, In no apparent distress, Oriented x3 HEENT: Atraumatic, Mucous membr. moist/pink, Other (right nare Rhino Rocket in place), EOMI, Sclerae nonicteric Neck: Supple, JVD not distended Respiratory: Clear to auscultation bilaterally, Normal air movement Cardiovascular: No edema, Regular rate/rhythm, Normal S1 S2, No gallops, No rubs, No murmurs Gastrointestinal: Normal bowel sounds, Soft and benign, Non-distended, No tenderness, No rebound, No guarding Musculoskeletal: No clubbing Integumentary: No rashes Neurological: Normal speech, Normal affect # Acute on Chronic Blood Loss Anemia secondary to Epistaxis - ENT consulted and spoke with Dr. Dodd - recommends transfer to [facility] for higher level of care - Recommends holding off on anticoagulation for now given profuse bleeding - She has completed doc-to-doc with Dr. Saleh (ENT), who has accepted - I have completed doc-to-doc with Dr. Aguilar ([facility] hospitalist), who has also accepted - Currently waiting for PCU bed at [facility] - q6hr H&H and transfuse for Hgb < 7.0 - NPO after midnight in case ENT-cauterization is required tomorrow - Today, repeated doc-to-doc with Dr. Bhatt ([facility] hospitalist), who has accepted for transfer - Waiting for bed availability # Atrial Fibrillation s/p PPM and recent Watchman placement - Cardiology consulted and spoke with Dr. 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 Discharge Plan: Transfer
[2022-01-17] MEDS: Meropenem 1,000 MG in NA CHLORIDE 0.9% 100 ML IV SCH (02:06)
[2022-01-17] MEDS: NA CHLORIDE 0.9% 1,000 ML IV SCH ×2 (03:00→09:34)
[2022-01-17 04:11] VITALS: BP 106/58; TEMP 97.6
[2022-01-17 05:58] LABS: Hematocrit 28.2 % (36.0-45.0); Lymphocytes % 15.5 % (15.3-44.8); MPV 7.9 fL (7.6-11.3); RBC Red Blood Cell Count 3.44 M/uL (3.86-4.86)
[2022-01-17] MEDS: LEVOTHYROXINE SOD 0.05 MG TABLET PO SCH ×2 (06:00→09:38)
[2022-01-17 06:09] LABS: Potassium 4.2 mmol/L (3.5-5.1)
[2022-01-17] MEDS: SOD FERRIC GLUC COMPLX/SUCROSE 125 MG in NA CHLORIDE 0.9% 100 ML IV SCH (09:35)
[2022-01-17] MEDS: MIDODRINE HCL 5 MG TABLET PO SCH (09:36)
[2022-01-17] MEDS: PANTOPRAZOLE 40MG TABLET PO SCH (09:36)
--- NOTE | 2022-01-17 09:39 | P.DS ---
Admission Date: 01/12/22 Discharge Date: 01/17/22 Disposition: TRANSFER TO [facility] Comment: [facility] Discharge Condition: FAIR Reason for Admission: Anemia/Epistaxis Consultations: 1. Otorhinolaryngology 2. Cardiology 3. 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 Marielos Soler is a pleasant 76-year-old female with a past medical history significant for chronic congestive heart failure, atrial fibrillation s/p PPM with recent watchman placement, and chronic kidney disease stage III who was admitted to the [facility] on 01/12/2022 for epistaxis. She is visiting [place], [place] from [place], [place]. Recently, she had a Watchman device placed for atrial fibrillation and it was recommended by her outside cataloging assistant that she be on apixaban. During her visit to [place], she developed significant epistaxis and was admitted to our service for acute on chronic blood loss anemia. During her stay, she required 3 units of pRBCs. Otorhinolaryngology was consulted and initially attempted to manage her symptoms with a Rhino Rocket and packing; however, this was not successful. It was then recommended that she be transferred for higher level of care to a facility with IR capabilities for a possible intranasal cauterization. Due to her significant bleeding, her apixaban has been on hold. Cardiology was consulted and recom mended resuming systemic anticoagulation as soon as it is safe to do so. Of note, she complained of dysuria on presentation. A urinalysis was performed which revealed multidrug-resistant Enterobacter cloacae, which was sensitive only to gentamicin, meropenem, and tobramycin. She was started on meropenem per Infectious Diseases recommendations. On 01/17/2022, she was accepted by Dr. Cassidy Byrd at [facility] and deemed medically stable for transfer. She was given the opportunity to ask questions and reported no further questions. Furthermore, all questions were answered to the best of my ability. Today, I personally spent 20 minutes on her case, of which greater than 50% of the time was spent in patient education, counseling, and coordination of care as described above. Physical Exam General: Alert, In no apparent distress, Oriented x3 HEENT: Atraumatic, Mucous membr. moist/pink, Other (right nare Rhino Rocket in place), EOMI, Sclerae nonicteric Neck: Supple, JVD not distended Respiratory: Clear to auscultation bilaterally, Normal air movement Cardiovascular: No edema, Regular rate/rhythm, Normal S1 S2, No gallops, No rubs, No murmurs Gastrointestinal: Normal bowel sounds, Soft and benign, Non-distended, No tenderness, No rebound, No guarding Musculoskeletal: No clubbing Integumentary: No rashes Neurological: Normal speech, Normal affect Vital Signs/Physical Exam: Temp Pulse Resp BP Pulse Ox 97.6 F 69 17 106/58 L 98 01/17/22 04:00 01/17/22 04:00 01/17/22 04:00 01/17/22 04:00 01/17/22 04:00 Laboratory Data at Discharge: WBC 6.6 K/uL (4.3-10.9) 01/17/22 05:44 Hgb 8.9 g/dL (12.0-15.0) L 01/17/22 05:44 Hct 28.2 % (36.0-45.0) L D 01/17/22 05:44 Plt Count 179 K/uL (152-406) 01/17/22 05:44 PT 17.9 SECONDS (9.5-12.5) H 01/14/22 06:29 INR 1.61 01/14/22 06:29 APTT 30.6 SECONDS (24.3-36.9) 01/14/22 06:29 Sodium 131 mmol/L (136-145) L 01/17/22 05:44 Potassium 4.2 mmol/L (3.5-5.1) 01/17/22 05:44 BUN 17 mg/dL (7-18) 01/17/22 05:44 Creatinine 0.76 mg/dL (0.55-1.3) 01/17/22 05:44 Glucose 91 mg/dL (74-106) 01/17/22 05:44 Phosphorus 3.4 mg/dL (2.5-4.9) 01/12/22 05:45 Magnesium 2.2 mg/dL (1.8-2.4) 01/14/22 06:29 Total Bilirubin 3.3 mg/dL (0.2-1.0) H 01/14/22 15:56 AST 26 U/L (15-37) 01/14/22 15:56 ALT 20 U/L (12-78) 01/14/22 15:56 Alkaline Phosphatase 235 U/L (45-117) H 01/14/22 15:56 Home Medications: Dicyclomine [Bentyl*] 10 mg PO QIDP PRN 01/12/22 Furosemide [Lasix] 20 mg PO DAILY 01/12/22 Levothyroxine [Synthroid*] 50 mcg PO [id number] 01/12/22 Pantoprazole [Protonix Tab*] 40 mg PO BID 01/12/22 Spironolactone 12.5 mg PO BID 01/12/22 Midodrine HCl [Proamatine*] 10 mg PO TIDWM tab 01/17/22 Diet: NPO Activity: Ad duane Followup: LONI IVEY [Primary Care Provider] - Time spent managing pt's care (in minutes): 20
[2022-01-17 10:49] VITALS: O2SAT 97
--- NOTE | 2022-01-17 16:02 | PN ---
Subjective: The patient is lying in bed. No new acute event. Chart reviewed. The patient is being transferred to [facility] for further management of epistaxis. The patient denies any headache , nausea, vomiting, chest pain, abdominal pain, constipation, or diarrhea. Objective: Vital signs: Temperature 97, pulse 69, respirations 17, blood pressure 106/58. Lungs: Basal crackles. Heart: S1, S2. Regular. Abdomen: Soft, nontender. Bowel sounds present. Extremities: No edema. Laboratory Data: Labs reviewed. Assessment And Plan: 1.The patient with history of atrial fibrillation, urinary tract infection secondary to Enterobacter cloacae, multidrug resistant, completed meropenem. 2.Moderate protein calorie malnourishment. 3.Anemia of chronic disease. We will continue to monitor. No further recommendation at this time. SABI/SHAHEEN Voice ID: [id number] Report ID: [id number]
== END 2022-01-17 11:57 | disposition short-term general hospital (02) | DRG 812 ==
LOC: ER 16:51 → ERHOLD 21:05 → 2ND 22:46 → OBSVTOIN 01-12 10:40
PROVIDERS: ADMIT Internal Medicine Sleep Medicine; ATTEND Internal Medicine Sleep Medicine
PROC: 30233N1 Transfusion of Nonautologous Red Blood Cells into Peripheral Vein, Percutaneous Approach (ICD-10-PCS; 2022-01-11)
PROC: 2Y41X5Z Packing of Nasal Region using Packing Material (ICD-10-PCS; principal; 2022-01-12)
DX: D62 Acute posthemorrhagic anemia (principal); I48.20 Chronic atrial fibrillation, unspecified; N39.0 Urinary tract infection, site not specified; Z16.12 Extended spectrum beta lactamase (ESBL) resistance; I13.0 Hypertensive heart and chronic kidney disease with heart failure and stage 1 through stage 4 chronic kidney disease, or unspecified chronic kidney disease; E44.0 Moderate protein-calorie malnutrition; Z68.1 Body mass index [BMI] 19.9 or less, adult; R04.0 Epistaxis; B96.89 Other specified bacterial agents as the cause of diseases classified elsewhere; N18.30 Chronic kidney disease, stage 3 unspecified; I50.814 Right heart failure due to left heart failure; Z20.822 Contact with and (suspected) exposure to COVID-19; Z79.01 Long term (current) use of anticoagulants
CPT/HCPCS: 36415; 36430; 80048; 80053; 80076; 81001; 82607; 82746; 82947; 83010; 83540; 83615; 83735; 84100; 84466; 84484; 85014; 85018; 85025; 85027; 85044; 85610; 85730; 86850; 86880; 86900; 86901; 87077; 87086; 87088; 87186; 87811; 93005; 97110; 97116; 97161; 97530; 99285; G0378; J2185; J2405; J2916; J3010; J3370; J7030; J7050; P9016